=== PATIENT | male | born 1965 | race Caucasian/White ===

== ENCOUNTER 2019-07-13 06:40 | Emergency (ER) | payer OTHER ==
[~2019-07-13] VITALS: Ht 175.3 cm; Wt 97.4 kg
[2019-07-13] MEDS ORDERED: BP MEDICATION (06:50)
[2019-07-13 07:35] LABS: BASO % 0.4 % (0.0-1.0); EOS # 0.2 10^3/uL (0.0-0.5); EOS % 1.5 % (0.0-3.0); HEMATOCRIT 49.7 % (42.0-52.0); LYMPH % 19.7 % (24.0-44.0); MEAN CORPUSCULAR HEMOGLOBIN 28.9 pg (27.0-33.0); MEAN CORPUSCULAR HGB CONC 34.2 g/dl (32.0-36.5); MEAN CORPUSCULAR VOLUME 84.4 fl (80.0-96.0); MONO # 0.7 10^3/uL (0.0-0.8); MONO % 6.4 % (0.0-5.0); NEUTROPHILS # 7.3 10^3/uL (1.5-8.5); NEUTROPHILS % 71.4 % (36.0-66.0); PLATELET COUNT, AUTOMATED 207 10^3/uL (150-450); RED BLOOD COUNT 5.89 10^6/uL (4.30-6.10); WHITE BLOOD COUNT 10.2 10^3/uL (4.0-10.0)
--- NOTE | 2019-07-13 08:05 | REP ---
Lumbar spine five views: There are no comparisons. The vertebral body heights and alignment are normal. There is no spondylolysis or spondylolisthesis. There is advanced degenerative disc disease at L5 S1. There is mild degenerative disc disease at L 03/04 and L4-5. The pedicles and facet articulations are unremarkable. The sacroiliac articulations are unremarkable. Impression: Multilevel degenerative disc disease, most advanced at L5 S1. Electronically Signed by Solomon Monroe MD 07/13/2019 07:56 A
[2019-07-13 08:06] LABS: BLOOD UREA NITROGEN 13 MG/DL (7-18); CALCIUM LEVEL 10.5 MG/DL (8.5-10.1); CARBON DIOXIDE LEVEL 30 MEQ/L (21-32); CHLORIDE LEVEL 103 MEQ/L (98-107); CK-MB VALUE MASS 1.4 NG/ML (<3.6); CPK CREATINE PHOSPHOKINASE 97 U/L (39-308); CREATININE FOR GFR 0.95 MG/DL (0.70-1.30); GLOMERULAR FILTRATION RATE > 60.0 (>56); GLUCOSE, FASTING 263 MG/DL (70-100); MB/CK RELATIVE INDEX 1.44 (< OR =4); POTASSIUM SERUM 4.2 MEQ/L (3.5-5.1); SODIUM LEVEL 138 MEQ/L (136-145); TROPONIN I < 0.02 NG/ML (< 0.10)
[2019-07-13] MEDS ORDERED: KETOROLAC 30 MG/ML VIAL (J1885) IV ONE (08:15)
[2019-07-13] MEDS ORDERED: METF-839 PO (09:02)
[2019-07-13] MEDS ORDERED: LISI-538 PO (09:02)
[2019-07-13] MEDS ORDERED: GABA-845 PO (09:02)
[2019-07-13] MEDS ORDERED: lisinopriL 20 MG TAB PO ONE (09:15)
[2019-07-13 09:17] VITALS: BP 159/110
[2019-07-13] MEDS ORDERED: methylPREDNISolone 4 MG TAB PO STA (09:18)
[2019-07-13] MEDS ORDERED: IBUP-1022 PO (09:24)
[2019-07-13] MEDS ORDERED: ZANT150T40 PO (09:25)
[2019-07-13] MEDS ORDERED: MEDR4PAK PO (09:25)
[2019-07-13] MEDS ORDERED: physical therapy (09:29)
[2019-07-13 09:30] VITALS: BP 166/109
[2019-07-13 10:20] LABS: HEMOGLOBIN A1c 8.4 %
--- NOTE | 2019-07-13 14:43 | ECGEPIP ---
[facility] - ED Test Date: 2019-07-13 Pat Name: NE HERNANDEZ Department: Room: - Gender: Male [employer]: GABRIELLE : 1965 Requested By: Maryanne Jim Order Number: [id number] Reading MD: Gómez Madrigal Measurements Intervals Floyd Rate: 95 P: 18 CA: 155 QRS: -9 QRSD: 89 T: 68 QT: 368 QTc: 463 Interpretive Statements SINUS RHYTHM Prolonged QTc interval NONSPECIFIC T-WAVE ABNORMALITY Comparison tracing not on file Electronically Signed on 07-13-2019 14:42:37 EST by Gómez Madrigal
== END 2019-07-13 09:42 | disposition home or self-care (01) ==
LOC: M ED 06:40
DX: M51.17 Intervertebral disc disorders with radiculopathy, lumbosacral region (principal); I10 Essential (primary) hypertension; E11.9 Type 2 diabetes mellitus without complications; Z91.19 Patient's noncompliance with other medical treatment and regimen; R94.31 Abnormal electrocardiogram [ECG] [EKG]; Z79.84 Long term (current) use of oral hypoglycemic drugs; Z79.899 Other long term (current) drug therapy
CPT/HCPCS: 72110; 80048; 82550; 82553; 83036; 84484; 85025; 93005; 96374; 99284; J1885